=== PATIENT | female | born 1985 | race Caucasian/White ===

== ENCOUNTER 2019-10-15 22:58 | Emergency (ER) | payer OTHER ==
[2019-10-15 23:13] VITALS: BMI 34.7
[2019-10-16] MEDS ORDERED: IBUPROFEN 600 MG TABLET (FP) PO ONE (00:25)
[2019-10-16] MEDS ORDERED: ACETAMINOPHEN 500 MG TABLET (FP) PO ONE (00:26)
[2019-10-16] MEDS ORDERED: ACETAMINOPHEN 500 MG TABLET (FP) ONE (00:28)
--- NOTE | 2019-10-16 00:29 | PDOC ---
History of Present Illness - General Chief Complaint: Cold Symptoms Stated Complaint: FEVER/ CHEST PAIN History Source: Patient - History of Present Illness Initial Comments: 10/16/19 00:52 33-year-old female complaining of suprapubic pain, fever, since this morning. Patient reports taking Tylenol at 11 AM. Patient also reports that she has been around sick people at work. Past medical history of UTI. Completed antibiotics 1 week ago Past History - Past Medical History Allergies/Adverse Reactions: Allergies Allergy/AdvReac Type Severity Reaction Status Date / Time Sulfa (Sulfonamide Allergy Severe Hives Verified 09/13/19 14:13 Antibiotics) Home Medications: Ambulatory Orders Cephalexin Monohydrate [Keflex -] 500 mg PO BID #11 capsule 09/13/19 Ciprofloxacin [Cipro (Restricted To Id)] 500 mg PO Q12H #20 tablet 10/16/19 Asthma: No Cancer: No Cardiac Disorders: No COPD: No Diabetes: No HTN: No Seizures: No Thyroid Disease: No - Immunization History Immunization Up to Date: No - Psycho Social/Smoking Cessation Hx Smoking History: Never smoked Have you smoked in the past 12 months: No Hx Alcohol Use: No Drug/Substance Use Hx: No Hx Substance Use Treatment: No Review of Systems - Review of Systems Able to Perform ROS?: Yes Is the patient limited Latvian proficient: No Constitutional: Yes: Fever ABD/GI: Yes: Other (suprapubic pain) : Yes: Flank Pain *Physical Exam - Vital Signs Last Vital Signs Temp Pulse Resp BP Pulse Ox 102.1 F H 98 H 19 101/48 L 97 10/15/19 23:08 10/15/19 23:08 10/15/19 23:08 10/15/19 23:08 10/15/19 23:08 - Physical Exam General Appearance: Yes: Appropriately Dressed Respiratory/Chest: positive: Lungs Clear, Normal Breath Sounds Gastrointestinal/Abdominal: positive: Other (suprapubic tenderness) Musculoskeletal: positive: CVA Tenderness (bilateral mild tenderness) Extremity: positive: Normal Capillary Refill Integumentary: positive: Normal Color, Dry, Warm Neurologic: positive: Fully Oriented, Alert ED Progress Note - Progress Note Progress Note: 10/16/19 00:57 A: UTI P: ua urine culture Influenza chest xray Discharge - Discharge Information Problems reviewed: Yes Clinical Impression/Diagnosis: UTI (urinary tract infection) Qualifiers: Urinary tract infection type: acute cystitis Hematuria presence: without hematuria Qualified Code(s): N30.00 - Acute cystitis without hematuria Disposition: HOME - Additional Discharge Information Prescriptions: Ciprofloxacin [Cipro (Restricted To Id)] 500 mg PO Q12H #20 tablet - Follow up/Referral Referrals: Toña Joseph MD [Primary Care Provider] - - Patient Discharge Instructions Patient Printed Discharge Instructions: Urinary Tract Infection Additional Instructions: Drink plenty of fluids Take ibuprofen every 6 hours as needed for pain Take ciprofloxacin as prescribed Follow-up with your primary care doctor as soon as possible. You need to repeat urine test once your antibiotic is completed. We will call you if you're antibiotic needs to be changed. return to the Emergency room if you are vomiting Or you are feeling worse - Post Discharge Activity Work/Back to School Note: Back to Work
--- NOTE | 2019-10-16 00:35 | PDOC ---
*Physical Exam - Vital Signs Last Vital Signs Temp Pulse Resp BP Pulse Ox 102.1 F H 98 H 19 101/48 L 97 10/15/19 23:08 10/15/19 23:08 10/15/19 23:08 10/15/19 23:08 10/15/19 23:08 ED Treatment Course - Medications Given in the ED: ED Medications Discontinued Medications Generic Name Dose Route Start Last Admin Trade Name Freddie PRN Reason Stop Dose Admin Acetaminophen 1,000 mg 10/16/19 00:26 10/16/19 00:32 Tylenol - PO 10/16/19 00:27 1,000 mg ONCE ONE Administration Ibuprofen 600 mg 10/16/19 00:25 10/16/19 00:32 Motrin - PO 10/16/19 00:26 Not Given ONCE ONE Medical Decision Making - Medical Decision Making 10/16/19 00:35 Patient seen by the advanced practice provider under my supervision. Ancillary testing reviewed as necessary. I agree with plan as outlined by the advanced practice provider. Discharge - Discharge Information Problems reviewed: Yes Clinical Impression/Diagnosis: UTI (urinary tract infection) Qualifiers: Urinary tract infection type: acute cystitis Hematuria presence: without hematuria Qualified Code(s): N30.00 - Acute cystitis without hematuria Disposition: HOME - Additional Discharge Information Prescriptions: Ciprofloxacin [Cipro (Restricted To Id)] 500 mg PO Q12H #20 tablet - Follow up/Referral Referrals: Toña Joseph MD [Primary Care Provider] - - Patient Discharge Instructions Patient Printed Discharge Instructions: Urinary Tract Infection Additional Instructions: Drink plenty of fluids Take ibuprofen every 6 hours as needed for pain Take ciprofloxacin as prescribed Follow-up with your primary care doctor as soon as possible. You need to repeat urine test once your antibiotic is completed. We will call you if you're antibiotic needs to be changed. return to the Emergency room if you are vomiting Or you are feeling worse - Post Discharge Activity Work/Back to School Note: Back to Work
[2019-10-16 01:36] LABS: EPI CELLS 6.8 /HPF (0-5/HPF); HYALINE CASTS 7 /lpf (0-8); PH,URINE 8.5 (5.0-8.0); URINE APPEARANCE CLOUDY; URINE BACTERIA 1764.6 /hpf (NEGATIVE); URINE BILIRUBIN NEGATIVE (NEGATIVE); URINE COLOR YELLOW; URINE GLUCOSE (UA) NEGATIVE (NEGATIVE); URINE KETONE NEGATIVE (NEGATIVE); URINE LEUK ESTERASE 2+ (NEGATIVE); URINE NITRITE NEGATIVE (NEGATIVE); URINE PROTEIN TRACE (NEGATIVE); URINE RBC 3 /hpf (0-4); URINE WBC 50 /hpf (0-5)
[2019-10-16] MEDS ORDERED: CIPROFLOXACIN 500 MG TABLET (RESTRICTED TO ID) PO ONE (01:39)
[2019-10-16 02:12] VITALS: BP 110/55; PULSE 90; TEMP 98.9
== END 2019-10-16 02:22 | disposition home or self-care (01) ==
LOC: JER 22:58
DX: N30.00 Acute cystitis without hematuria (principal); Z87.440 Personal history of urinary (tract) infections
CPT/HCPCS: 71046-TC-FY; 81003; 84703; 87086; 87186; 87804; 99284-25

== ENCOUNTER 2020-08-14 11:30 | Emergency (ER) | payer OTHER | END 2020-08-14 11:53 | disposition home or self-care (01) | LOC: JVIRT 11:30 | DX: Z11.59 Encounter for screening for other viral diseases (principal) | CPT/HCPCS: C9803; G2012-GT; U0003 ==

== ENCOUNTER 2020-12-17 13:32 | Emergency (ER) | payer OTHER ==
[2020-12-18 07:08] LABS: SARS-CoV-2 NAA Detected (Not Detected)
== END 2020-12-17 14:19 | disposition home or self-care (01) ==
LOC: JVIRT 13:32
DX: U07.1 COVID-19 (principal)
CPT/HCPCS: C9803; G2251-GT; U0003; U0005

== ENCOUNTER 2021-01-30 13:04 | Emergency (ER) | payer OTHER ==
[2021-01-30 13:26] VITALS: BP 100/60; PULSE 90; TEMP 98; BMI 33.0
[2021-01-30] MEDS ORDERED: KETOROLAC TROMETHAMINE 30 MG/1 ML VIAL IM ONE (14:28)
[2021-01-30] MEDS ORDERED: KETOROLAC TROMETHAMINE 30 MG/1 ML VIAL ONE (14:30)
== END 2021-01-30 14:41 | disposition home or self-care (01) ==
LOC: JERFT 13:04
PROC: 3E0233Z Introduction of Anti-inflammatory into Muscle, Percutaneous Approach (ICD-10-PCS; principal; 2021-01-30)
DX: M54.41 Lumbago with sciatica, right side (principal)
CPT/HCPCS: 99284-25

== ENCOUNTER 2021-12-01 14:07 | Emergency (ER) | payer OTHER ==
[2021-12-01 14:17] VITALS: TEMP 99.2; BMI 30.2
[2021-12-01] MEDS ORDERED: SODIUM CHLORIDE 0.9% 500 ML INFUS.BAG IV ONE (14:55)
[2021-12-01] MEDS ORDERED: ONDANSETRON 4 MG/2 ML VIAL IVPUSH ONE (14:56)
[2021-12-01] MEDS ORDERED: ACETAMINOPHEN 1000 MG/100 ML BAG IVPB ONE (14:56)
[2021-12-01] MEDS ORDERED: ACETAMINOPHEN INJECTION 100 ML IVPB ONE (14:58)
[2021-12-01] MEDS ORDERED: ONDANSETRON 4 MG/2 ML VIAL ONE (14:58)
[2021-12-01 15:27] LABS: BASO % 0.1 % (0-2.0); HEMATOCRIT 36.7 % (32.4-45.2); HEMOGLOBIN 12.5 GM/dL (10.7-15.3); LYMPH % 10.9 % (8-40); MCH 31.6 pg (25.7-33.7); MCHC 34.1 g/dl (32.0-36.0); MEAN CELL VOLUME 92.6 fl (80-96); MEAN PLT VOLUME 7.7 fl (7.5-11.1); MONO % 8.2 % (3.8-10.2); NEUT % 80.8 % (42.8-82.8); PLATELET COUNT 248 10^3/uL (134-434); RBC 3.96 M/mm3 (3.60-5.2); RDW 13.4 % (11.6-15.6); WHITE BLOOD COUNT 10.6 K/mm3 (4.0-10.0)
[2021-12-01 15:32] LABS: EPI CELLS >36 /uL (0-25.1); HYALINE CASTS 0 /uL (0-3.1); PH,URINE 8.5 (5.0-8.0); URINE APPEARANCE CLEAR; URINE BACTERIA 6810 /uL (0-1359); URINE BILIRUBIN NEGATIVE (NEGATIVE); URINE COLOR YELLOW; URINE GLUCOSE (UA) NEGATIVE (NEGATIVE); URINE KETONE NEGATIVE (NEGATIVE); URINE LEUK ESTERASE 3+ (NEGATIVE); URINE NITRITE NEGATIVE (NEGATIVE); URINE PROTEIN NEGATIVE (NEGATIVE); URINE RBC 38 /uL (0-23.9); URINE WBC 49 /uL (0-25.8)
[2021-12-01 15:33] LABS: HCG,QUALITATIVE URINE Negative
[2021-12-01 15:47] LABS: CALCIUM 9.1 mg/dL (8.5-10.1)
[2021-12-01 15:48] LABS: ALBUMIN 3.6 g/dl (3.4-5.0); BLOOD UREA NITROGEN 10.1 mg/dL (7-18)
[2021-12-01 15:51] LABS: CREATININE 0.9 mg/dL (0.55-1.3)
[2021-12-01 15:52] LABS: BILIRUBIN,TOTAL 0.6 mg/dL (0.2-1); TOT PROT 7.4 g/dl (6.4-8.2)
[2021-12-01 18:40] VITALS: BP 122/79; PULSE 89
== END 2021-12-01 18:40 | disposition home or self-care (01) ==
LOC: JER 14:07
PROC: 3E033GC Introduction of Other Therapeutic Substance into Peripheral Vein, Percutaneous Approach (ICD-10-PCS; principal; 2021-12-01)
DX: N10 Acute pyelonephritis (principal)
CPT/HCPCS: 36415; 74177-TC; 80053; 81003; 83690; 84703; 85025; 87086; 87186; 96374; 96375; 99285-25; Q9967

== ENCOUNTER 2023-06-05 07:55 | Emergency (ER) | payer OTHER ==
[2023-06-05] MEDS ORDERED: ACETAMINOPHEN 1000 MG/100 ML BAG IVPB ONE (08:42)
[2023-06-05] MEDS ORDERED: ACETAMINOPHEN INJECTION 100 ML IVPB ONE (08:45)
[2023-06-05 08:50] VITALS: TEMP 98; BMI 32.4
[2023-06-05 09:17] LABS: BASO % 0.4 % (0-2.0); EOS % 0.6 % (0-4.5); HEMATOCRIT 38.5 % (32.4-45.2); HEMOGLOBIN 12.7 GM/dL (10.7-15.3); LYMPH % 39.6 % (8-40); MCH 30.6 pg (25.7-33.7); MEAN CELL VOLUME 92.5 fl (80-96); MEAN PLT VOLUME 7.3 fl (7.5-11.1); MONO % 9.3 % (3.8-10.2); NEUT % 50.1 % (42.8-82.8); PLATELET COUNT 273 10^3/uL (134-434); RBC 4.16 M/mm3 (3.60-5.2); RDW 13.6 % (11.6-15.6); WHITE BLOOD COUNT 4.6 K/mm3 (4.0-10.0)
[2023-06-05 09:23] LABS: INR 1.1 (0.83-1.09); PROTHROMBIN TIME (PATIENT) 12.8 SEC (9.7-13.0)
[2023-06-05 09:24] LABS: POTASSIUM 4.3 mmol/L (3.5-5.1)
[2023-06-05 09:26] LABS: ACTIVATED PTT 27.9 SECONDS (25.2-36.5); CALCIUM 8.3 mg/dL (8.5-10.1)
[2023-06-05 09:27] LABS: ALBUMIN 3.6 g/dl (3.4-5.0)
[2023-06-05 09:28] LABS: MAGNESIUM 2.2 mg/dL (1.8-2.4)
[2023-06-05 09:30] LABS: CREATININE 0.8 mg/dL (0.55-1.3); PHOSPHOROUS 2.7 mg/dL (2.5-4.9)
[2023-06-05 09:31] LABS: BILIRUBIN,TOTAL 0.9 mg/dL (0.2-1)
[2023-06-05 09:32] LABS: TOT PROT 6.8 g/dl (6.4-8.2)
[2023-06-05] MEDS ORDERED: KETOROLAC TROMETHAMINE 15 MG/ML VIAL IVPUSH ONE (09:39)
[2023-06-05] MEDS ORDERED: KETOROLAC TROMETHAMINE 15 MG/ML VIAL ONE (09:46)
[2023-06-05] MEDS ORDERED: SODIUM CHLORIDE 0.9% 500 ML INFUS.BAG IV ONE (10:43)
[2023-06-05 11:35] LABS: URINE APPEARANCE CLEAR; URINE BILIRUBIN NEGATIVE (NEGATIVE); URINE COLOR YELLOW; URINE GLUCOSE (UA) NEGATIVE (NEGATIVE); URINE KETONE NEGATIVE (NEGATIVE); URINE LEUK ESTERASE NEGATIVE (NEGATIVE); URINE NITRITE NEGATIVE (NEGATIVE); URINE PROTEIN NEGATIVE (NEGATIVE); URINE UROBILINOGEN 0.2 mg/dL (0.2-1.0)
[2023-06-05 12:01] VITALS: BP 93/55; PULSE 55; RESP 16
[2023-06-05] MEDS ORDERED: diazePAM 5 MG TABLET PO ONE (12:24)
[2023-06-05] MEDS ORDERED: diazePAM 5 MG TABLET ONE (12:26)
[2023-06-05] MEDS ORDERED: LIDOCAINE 5% TOPICAL PATCH TP ONE (13:33)
[2023-06-05] MEDS ORDERED: LIDOCAINE 5% TOPICAL PATCH ONE (13:49)
[2023-06-05] MEDS ORDERED: LIDOCAINE PATCH REMOVAL MC SCH (22:00)
== END 2023-06-05 14:26 | disposition home or self-care (01) ==
LOC: JER 07:55
PROC: 3E033NZ Introduction of Analgesics, Hypnotics, Sedatives into Peripheral Vein, Percutaneous Approach (ICD-10-PCS; principal; 2023-06-05)
PROC: 3E0333Z Introduction of Anti-inflammatory into Peripheral Vein, Percutaneous Approach (ICD-10-PCS; 2023-06-05)
DX: M54.2 Cervicalgia (principal); R20.2 Paresthesia of skin; R20.0 Anesthesia of skin; M62.838 Other muscle spasm; F41.9 Anxiety disorder, unspecified
CPT/HCPCS: 36415; 70450-TC; 71045-TC-FY; 72125-TC; 80053; 81003; 83690; 83735; 84100; 84484; 84703; 85025; 85610; 85730; 86850; 86900; 86901; 87086; 93005; 93010; 99285-25